=== PATIENT | male | born 2000 | race Hispanic/Latino ===

== ENCOUNTER 2019-02-09 08:46 | Emergency (ER) | payer MEDICAID, OTHER ==
[2019-02-09] MEDS ORDERED: SULFAMETHOX-TMP DS 800/160 TAB ONE (09:47)
[2019-02-09] MEDS ORDERED: IBUPROFEN 600 MG TABLET ONE (09:47)
== END 2019-02-09 10:16 | disposition home or self-care (01) ==
LOC: EDH 08:46
DX: L02.31 Cutaneous abscess of buttock (principal); J45.909 Unspecified asthma, uncomplicated; Z72.0 Tobacco use

== ENCOUNTER 2019-12-19 16:01 | Emergency (ER) | payer OTHER ==
[2019-12-19] MEDS ORDERED: KETOROLAC TROMETHAMINE 30MG/ML ONE (17:53)
[2019-12-19] MEDS ORDERED: TETANUS/DIPHTHERIA TOXOID [ADULT] 0.5 ML VIAL IM ONE (17:53)
[2019-12-19] MEDS ORDERED: LIDOCAINE HCL 1% 20 ML VIAL ONE (17:57)
== END 2019-12-19 19:30 | disposition home or self-care (01) ==
LOC: EDH 16:01
DX: S01.81XA Laceration without foreign body of other part of head, initial encounter (principal); J45.909 Unspecified asthma, uncomplicated; V86.59XA Driver of other special all-terrain or other off-road motor vehicle injured in nontraffic accident, initial encounter; Y93.89 Activity, other specified; Y92.098 Other place in other non-institutional residence as the place of occurrence of the external cause; Y99.8 Other external cause status
CPT/HCPCS: 12015; 70450; 70490; 90471; 90714; 96372; 99285; J1885

== ENCOUNTER 2021-09-19 18:26 | Emergency (ER) | payer OTHER ==
[~2021-09-19] VITALS: Ht 188 cm; Wt 133.8 kg
[2021-09-19 19:30] VITALS: BP 153/86
== END 2021-09-19 21:54 | disposition left against medical advice (07) ==
LOC: EDH 18:26
DX: S61.012A Laceration without foreign body of left thumb without damage to nail, initial encounter (principal); X58.XXXA Exposure to other specified factors, initial encounter; Y93.89 Activity, other specified; Y92.89 Other specified places as the place of occurrence of the external cause; Y99.8 Other external cause status; Z53.21 Procedure and treatment not carried out due to patient leaving prior to being seen by health care provider

== ENCOUNTER 2022-04-21 11:03 | Emergency (ER) | payer OTHER ==
[~2022-04-21] VITALS: Ht 190.5 cm; Wt 129.3 kg
[2022-04-21 11:24] LABS: BASOPHILS % (AUTO) 0.5 % (0.0-5.0); EOSINOPHILS % (AUTO) 0.8 % (0.0-8.0); HEMATOCRIT 43.8 % (42-54); LYMPHOCYTES % (AUTO) 21.4 % (21.0-51.0); MEAN CORPUSCULAR HEMOGLOBIN 26.2 pg (27.0-33.0); MEAN CORPUSCULAR HGB CONC 32.6 g/dL (32.0-36.0); MEAN CORPUSCULAR VOLUME 80.2 fL (79-99); MONOCYTES % (AUTO) 7.1 % (3.0-13.0); NEUTROPHILS % (AUTO) 69.4 % (40.0-77.0); PLATELET COUNT (AUTO) 376 K/uL (130-400); RED BLOOD CELL COUNT(AUTO) 5.46 MIL/uL (4.50-6.20); RED CELL DISTRIBUTION WIDTH 13.7 % (11.0-15.5); WHITE BLOOD COUNT (AUTO) 11.9 K/uL (4.8-10.8)
[2022-04-21 11:32] LABS: CREATININE 1.1 mg/dL (0.5-1.5); POTASSIUM 4.3 mmol/L (3.5-5.1)
[2022-04-21 11:37] LABS: ALBUMIN 4.4 g/dL (3.5-5.0); TOTAL PROTEIN, SERUM 8.1 g/dL (6.0-8.3)
[2022-04-21 12:05] LABS: APPEARANCE,URINE CLEAR (CLEAR); BILIRUBIN,URINE NEGATIVE (NEGATIVE); COLOR,URINE LIGHT-YELLOW (YELLOW); GLUCOSE, URINE (UA) NEGATIVE (NEGATIVE); KETONES,URINE NEGATIVE (NEGATIVE); LEUKOCYTE ESTERASE ,URINE NEGATIVE Leu/uL (NEGATIVE); NITRATE,URINE NEGATIVE (NEGATIVE); OCCULT BLOOD,URINE MODERATE (NEGATIVE); PROTEIN,URINE 20 mg/dL (NEGATIVE); UROBILINOGEN,URINE 0.2 mg/dL (0.2-1.0)
[2022-04-21 12:15] VITALS: BP 151/90
[2022-04-21 12:29] LABS: BACTERIA,URINE Few /HPF (None Seen); SQUAMOUS EPITHELIAL CELL,UR 0-2 /HPF (0-2); WBC,URINE None Seen /HPF (0-1)
[2022-04-21] MEDS ORDERED: ONDANSETRON 4MG INJ IVP ONE (13:00)
[2022-04-21] MEDS ORDERED: MORPHINE 4 MG SYG IVP ONE (13:00)
[2022-04-21] MEDS ORDERED: 0.9%NACL 1000ML 1,000 ML IV ONE (13:00)
[2022-04-21] MEDS ORDERED: IOHEXOL 350 MG/ML 100ML INFUS..BTL IV ONE (13:22)
== END 2022-04-21 15:34 | disposition home or self-care (01) ==
LOC: EDH 11:03
DX: N20.0 Calculus of kidney (principal); Z20.822 Contact with and (suspected) exposure to COVID-19
CPT/HCPCS: 99285; 74177; 96374; 96361; 87635; 96375; 82150; 80053; 83690; 85025; 87040 ×2; 87804 ×2; 83605; 81001; 36415; C9803; J7030; J2405; J2270; Q9967

== ENCOUNTER 2023-06-18 15:34 | Emergency (ER) | payer BC, OTHER ==
[~2023-06-18] VITALS: Ht 190.5 cm; Wt 129.3 kg
[2023-06-18 15:53] VITALS: BP 145/79; PULSE 87; RESP 16; O2SAT 98
[2023-06-18] MEDS ORDERED: IBUP-2077 PO (17:53)
[2023-06-18] MEDS ORDERED: IBUPROFEN 800 MG TAB PO ONE (18:00)
== END 2023-06-18 18:13 | disposition home or self-care (01) ==
LOC: EDH 15:34
DX: G89.29 Other chronic pain (principal); M25.531 Pain in right wrist
CPT/HCPCS: 73100